=== PATIENT | female | born 1990 | race Two or more races ===

== ENCOUNTER 2019-02-23 17:17 | Emergency (ER) | payer MEDICAID, OTHER ==
[~2019-02-23] VITALS: Ht 167.6 cm; Wt 75.0 kg
[2019-02-23] MEDS ORDERED: IBUPROFEN 600MG TABLET PO ONE (18:45)
[2019-02-23] MEDS ORDERED: ACETAMINOPHEN 500MG TABLET PO ONE (18:45)
[2019-02-23 20:14] VITALS: BP 126/75
== END 2019-02-23 20:18 | disposition home or self-care (01) ==
LOC: ER 17:17
DX: M25.532 Pain in left wrist (principal); M79.632 Pain in left forearm; R07.89 Other chest pain; V49.09XA Driver injured in collision with other motor vehicles in nontraffic accident, initial encounter; Y93.89 Activity, other specified; Y92.89 Other specified places as the place of occurrence of the external cause; Y99.8 Other external cause status
CPT/HCPCS: 71046; 73090; 73110; 73130; 99283